=== PATIENT | female | born 1935 | race Caucasian/White ===

== ENCOUNTER 2016-12-03 01:02 | Day surgery (SDC) | payer MEDICARE, MEDICAID ==
[2016-12-03] VITALS (10 sets, daily range): BP systolic 122–172; BP diastolic 47–73; PULSE 56–78; RESP 13–20; O2SAT 98
[~2016-12-03] VITALS: Ht 167.6 cm; Wt 86.4 kg
[~2016-12-03 01:02] MED LIST: CA C1TAB29 PO; FLUN25SP NS; HYDR50TA3 PO; LANS30CA14 PO; LISI-571 PO; MECL-114 PO; METO25TA6 PO; MULT-666 PO; NITR0.4T6 SL; POTA99TA21 PO; PRAV40TA PO; TRAM50TA2 PO; WARF2TAB7 PO
[2016-12-03 11:48] LABS: BASOPHILS % (AUTO) 0.4 % (0-3); EOSINOPHILS % (AUTO) 4.9 % (0-5); MONOCYTES % (AUTO) 7.5 % (4-12); Mean Corpuscular Hemoglobin 28.3 pg (27.0-35.0); NEUTROPHILS % (AUTO) 48.5 % (40-74); Platelet Count 244 bil/L (150-400)
[2016-12-03 12:08] LABS: INR 1.72 ratio
[2016-12-03] MEDS ORDERED: Bupivacaine-MPF 0.5% 30 mL Inj ONE (13:29)
[2016-12-03] MEDS ORDERED: 0.9% Sodium Chloride 250 ML ONE (13:29)
[2016-12-03] MEDS ORDERED: Heparin 5,000 Units/500 mL NS Premix IV ONE (13:29)
[2016-12-03] MEDS ORDERED: Water for Injection 50 ML IV ONE (13:30)
[2016-12-03] MEDS ORDERED: Vancomycin 1,000 mg Inj ONE (13:39)
[2016-12-03] MEDS ORDERED: fentaNYL-PF 50 mCg/mL 2 mL Inj ONE (14:19)
[2016-12-03] MEDS ORDERED: Ondansetron 2 mg/mL 2 mL Inj IVPUSH PRN (15:40)
[2016-12-03] MEDS: 0.9% Sodium Chloride 1,000 ML IV SCH (15:40)
--- NOTE | 2016-12-03 16:44 | DRSVH ---
PROCEDURE: X-RAY CHEST ONE VIEW, PORTABLE ([id number]) INDICATIONS: For new leads placed TECHNIQUE: One view of the chest was acquired. COMPARISON: [facility], CR, XR CHEST 1VW (PORTABLE), 05/21/2016, 11:41. [facility] on, CR, XR CHEST 2VW, 07/29/2016, 9:55. FINDINGS: Surgical changes and devices: Patient is status post dual lead cardiac defibrillator placement. Lungs and pleura: No pleural effusions or pneumothorax. Lungs are clear. Mediastinum: The heart is normal size. There is a questionable hyperdense mass at the right hilum. Bones and chest wall: No suspicious bony lesions. Overlying soft tissues appear unremarkable. IMPRESSION: 1. Status post cardiac pacemaker without pneumothorax. 2. Questionable high density mass at the right hilum. This may represent calcified lymph nodes or art ifact from vascular shadows. If further characterization is warranted, CT of the chest may be helpful . Dictated by: Jael Lara M.D. on 12/03/2016 at 16:41 Approved by: Jael Lara M.D. on 12/03/2016 at 16:43
--- NOTE | 2016-12-03 18:21 | OP ---
[address] [address] OPERATIVE REPORT PATIENT: BLANQUITA BARRON : 1935 MR#: [id number] ADMIT: 12/03/2016 JOB ID: [id number] DATE OF SURGERY: 12/03/2016 PREOPERATIVE DIAGNOSIS(ES): Sick sinus syndrome. POSTOPERATIVE DIAGNOSIS(ES): Sick sinus syndrome. PROCEDURES PERFORMED: 1. Dual-chamber pacemaker implantation. 2. Fluoroscopy. SURGEON: Zak Nunn M.D., electrophysiology attending. [employer] DRIVER: Deandre Perdue/Rhina France. IMPLANTED DEVICE: 1. [employer] pulse generator, model LB4013, serial #[id number]. 2. RA lead, [employer] LB, 1246 cm, serial #[id number]. 3. RV lead [employer], LPA 1200M, 52 cm, serial #[id number]. ANESTHESIA: Bolus dosing of Versed and fentanyl were utilized for appropriate level of sedation. INDICATION: The patient is a pleasant 81-year-old woman with sick sinus syndrome. After discussion of risks and benefits of pacemaker implantation, she opted to proceed. PROCEDURAL DESCRIPTION: Following informed consent, the patient was then taken to the EP laboratory in a fasting nonsedated state where she was prepped and draped in the usual sterile fashion. The left infraclavicular region was infiltrated with 40 cc of a 50/50 mixture of bupivacaine and lidocaine. Once adequate anesthesia had been achieved, a 3 cm transverse incision was performed 2 cm below the left clavicle. Dissection was carried down to the pectoralis fascia and a pocket was then fashioned using a combination of electrocautery and blunt dissection. Once adequate hemostasis had been achieved, access to the left axillary vein was done with a micropuncture needle twice to deploy two 0.035, 3 mm J guidewires. Over the first of these, an 8-Kosovan tear-away sheath was advanced. RV outflow tract and ultimately RV apex. The lead was affixed in position using associated fixation screw. It was connected to the external analyzer and demonstrated appropriately sensed R waves, impedance. Capture threshold was checked to 10 V and there was no diaphragmatic stimulation. Attention was now paid to the right atrial lead. Over the J guidewire, another 8-Kosovan tear-away sheath was advanced. active fixation lead was inserted and was affixed in position using associated active fixation screw. The lead was connected to external analyzer and demonstrated appropriately sensed P waves, impedance, capture threshold. The lead was checked at 10 V and there was no evidence of diaphragmatic stimulation. Once the position and redundancy of both leads were confirmed with multiple views, the leads were anchored to the prepectoralis fascia using associated . The pocket was copiously irrigated with antibiotic solution. The leads were connected to a generator. The generator was placed within the pocket and affixed to the floor of the pocket using 1-0 Ti-Cron suture. The incision was closed with running layers of suture. The wound was dressed with and a small dressing. At the end of the procedure, the sponge, needle and instrument counts were correct. COMPLICATIONS: None. ESTIMATED BLOOD LOSS: Negligible. MEASURED DEVICES: 1. Right atrial lead, 2.3 mV, 540 ohms, 1.25 V at 0.4 msec. 2. RV lead greater than 12 mV, 590 ohms, 0.5 V at 0.4 msec. FINAL PROGRAM PARAMETERS: DDD 60-130 beats per minute. IMPRESSION: Successful dual-chamber pacemaker implantation. PLAN: 1. Stat portable chest x-ray. 2. PA and lateral chest x-ray in the morning. 3. . 4. Vancomycin through tomorrow. 5. Doxycycline x7 days starting this week. 6. Check in one week. ATTENDING STATEMENT: Zak Nunn M.D., electrophysiology attending, was present for and supervised/performed all aspects of this procedure.
--- NOTE | 2016-12-03 18:45 | NUR ---
Arrival to [facility] Rm [id number] from [facility] Pt arrived to [facility] A&OX3, able to SKELTON, RA, SPO2 mid 90's, answers questions approriately; L arm in sling, pacemaker site L chest, dressing CDI, c/o L shoulder pain, states cannot take PO Tylenol but can take PO Tramadol. Next IV Vanco 1Gram dose due at 2am according to ZAMZAM Koehler, will pass onto NOC shift RN. Pt oriented to room by floor aide and tucked into bed. Will continue to monitor with frequent rounds.
--- NOTE | 2016-12-03 19:52 | PCM.CONPHA ---
Subjective Date of Service: December 03, 2016 Requesting Provider: Zak Nunn MD Reason for Pharmacy Consult: Anticoagulation Management Objective Vital Signs Date Time Temp Pulse Resp B/P Pulse Ox O2 Delivery O2 Flow Rate FiO2 12/03/16 18:58 36.5 72 20 161/72 98 Room Air 12/03/16 18:00 78 16 122/73 98 Room Air 12/03/16 17:30 62 16 166/58 98 Room Air 12/03/16 17:00 70 16 160/55 98 Room Air 12/03/16 16:45 64 16 160/52 98 Room Air 12/03/16 16:28 71 16 170/56 98 Room Air 12/03/16 16:15 60 16 172/50 98 Room Air 12/03/16 16:05 60 16 162/72 98 Room Air 12/03/16 12:01 36.7 56 13 145/47 BiPAP Weight (Kilograms): 86.360 Height (Feet): 5 Height (Inches): 6.00 Test 12/03/16 11:45 White Blood Count 7.3th/mm3 (3.8-10.1) Red Blood Count 4.67mil/mm3 (3.90-5.20) Hemoglobin 13.2g/dL (12.0-15.6) Hematocrit 41.1% (35.0-46.0) Mean Corpuscular Volume 88.0fL (81-100) Mean Corpuscular Hemoglobin 28.3pg (27.0-35.0) Mean Corpuscular Hemoglobin Concent 32.1% (32.0-37.0) Red Cell Distribution Width 15.0% (12.3-15.4) Platelet Count 244bil/L (150-400) Neutrophils (%) (Auto) 48.5% (40-74) Lymphocytes (%) (Auto) 38.7% (14-46) Monocytes (%) (Auto) 7.5% (4-12) Eosinophils (%) (Auto) 4.9% (0-5) Basophils (%) (Auto) 0.4% (0-3) Prothrombin Time 18.6sec (8.1-12.5) Prothromb Time International Ratio 1.72ratio Sodium Level 140mEq/L (134-144) Potassium Level 4.7mEq/L (3.5-5.2) Chloride Level 104mEq/L (97-108) Carbon Dioxide Level 23mmol/L (18-29) Blood Urea Nitrogen 21mg/dL (8-27) Creatinine 1.28mg/dL (0.57-1.00) Estimat Glomerular Filtration Rate 57mL/min (>59) Glucose Level 102mg/dL (60-99) Calcium Level 9.1mg/dL (8.5-10.1) Assessment/Plan Assessment/Plan Warfarin per Rx Home Dose: 2mg; no notes regarding indications; assuming A-Fib w/o valve INR today is 1.72; Goal is 2-3; approaching therapeutic, will keep usual home dose of 2mg Daily INR Christian Montiel PharmD December 03, 2016 19:52
--- NOTE | 2016-12-03 20:28 | NUR ---
pain complains of left upper chest incisional discomfort. rates 4 per numeric scale. dressing c/d/i. no hematoma arm in sling. adjusted for comfort given ice bag for comfort to incision medicated with scheduled tramadol will re evaluate. resting comfortably at this time. Addendum: 12/03/16 at 2247 by MITCH FERRO RN medicated with hydrocodone. effective. resting with eyes closed.
[2016-12-03] MEDS: HYDROcodone-APAP 5-325 mg Tablet PO PRN (21:00)
[2016-12-04 00:45] VITALS: BP 159/75; PULSE 60; RESP 18; O2SAT 95
[2016-12-04] MEDS ORDERED: 0.9% Sodium Chloride 250 ML ONE (01:35)
[2016-12-04] MEDS: 0.9% Sodium Chloride 1,000 ML IV SCH ×2 (01:40→11:40)
[2016-12-04] MEDS: HYDROcodone-APAP 5-325 mg Tablet PO PRN ×2 (01:41→06:17)
[2016-12-04] MEDS ORDERED: Vancomycin Inj 1,000 MG in IV Premix 1 EACH IV ONE (03:40)
[2016-12-04 04:32] VITALS: BP 148/69; PULSE 63; RESP 18; O2SAT 94
[2016-12-04] MEDS ORDERED: Pantoprazole 40 mg ER24 Tablet PO SCH (06:30)
[2016-12-04 06:43] LABS: INR 1.89 ratio
[2016-12-04] MEDS ORDERED: Fluticasone 0.05% 15 Spray/2 Gm 16 Gm Nasal Spray NASAL SCH (08:30)
[2016-12-04 08:46] VITALS: BP 146/73; PULSE 73; RESP 20; O2SAT 92
--- NOTE | 2016-12-04 10:29 | PCM.DIMED ---
Discharge Instructions Date of Service December 04, 2016 Dates of Hospitalization Discharge Diagnosis Discharge Diagnosis Sick Sinus Syndrome Sinus Bradycardia Paroxysmal Atrial Fibrillation with rapid rates CAD Hypertension Diet Low fat, Low Sodium, Heart Healthy Activity Other (Keep incision dry one day. Do not extend left elbow high above shoulder for one month. Do not lift, push or pull more than 10 lbs with the left arm for one month.) Call your provider Fever or Chills, Bleeding, Excessive diarrhea Patient Instructions Follow-up in: 1 week Mid-level Provider (F9): Mj Miller PA-C Follow-up with Mid-level in: 6 weeks Mj Miller PA-C December 04, 2016 10:29
[2016-12-04] MEDS ORDERED: DOXY100C2 PO (10:45)
[2016-12-04 10:57] VITALS: PULSE 60
--- NOTE | 2016-12-04 11:23 | DIS ---
[address] [address] DISCHARGE SUMMARY PATIENT: BLANQUITA BARRON : 1935 MR#: [id number] ADMIT: 12/03/2016 JOB ID: [id number] DIS: REASON FOR ADMISSION: Pacemaker implant. CHIEF COMPLAINT: Slow heart rate, lightheadedness and falls. BRIEF HISTORY: The patient is a pleasant 81-year-old woman known to have coronary artery disease and prior PCI who has preserved LV function and paroxysmal atrial fibrillation. She has had episodes of falls and presyncope, which led to a hospitalization in [place] in August this year. There, she was found to have rapid atrial fibrillation and required at least low-dose beta-denis for rate control but this led to exacerbation of symptomatic bradycardia. She was advised to seek pacemaker implant. COURSE IN THE HOSPITAL: The patient was admitted through the [facility] and taken to the catheterization laboratory, where she received a dual-chamber cardiac pacemaker without incident. She was taken back to the [facility] for recovery from sedation and then transferred up to the [facility] for overnight telemetry monitoring and observation. She did well overnight and in the morning was ambulatory without difficulty. The pacemaker site was closed and dry. There was no hematoma. Chest x-ray showed good lead positions and no pneumothorax. Device evaluation showed excellent capture and sensing thresholds. She felt well for discharge home and had no complaints of nausea, shortness of breath, chest pain, or lightheadedness. DISPOSITION: The patient was discharged home in good condition with a followup appointment at the [facility] Cardiology office in one week. She was asked not to extend her left elbow above her shoulder for one month and not to lift, push, or pull more than 10 pounds with the left arm for one month. She will follow her usual heart healthy diet and take medications as prescribed. DISCHARGE MEDICATIONS: 1. Doxycycline 100 mg daily for 1 week. 2. Calcium with vitamin D3 tablet 1 daily. 3. Flunisolide 25 mL nasal spray. 4. Hydrochlorothiazide 50 mg daily. 5. Lansoprazole 30 mg daily. 6. Lisinopril 5 mg daily. 7. Meclizine 25 mg t.i.d. p.r.n. dizziness. 8. Metoprolol succinate 12.5 mg b.i.d. 9. Multivitamin 1 daily. 10. Nitroglycerin sublingual 0.4 mg sublingual q.5 minutes p.r.n. chest pain. 11. Potassium gluconate 99 mg daily. 12. Pravastatin 40 mg daily. 13. Tramadol 50 mg t.i.d. p.r.n. pain. 14. Warfarin 2 mg daily. FINAL DIAGNOSES: 1. Sick sinus syndrome. 2. Paroxysmal atrial fibrillation. 3. Sinus bradycardia. 4. Coronary artery disease. 5. Hypertension.
--- NOTE | 2016-12-04 12:12 | DRSVH ---
PROCEDURE: X-RAY CHEST, TWO VIEWS ([id number]) INDICATIONS: FOR NEW LEAD PLACEMENT TECHNIQUE: Two views of the chest were acquired. COMPARISON: [facility], CR, XR CHEST 1VW (PORTABLE), 05/21/2016, 11:41. [facility], CR, XR CHEST 1VW (PORTABLE), 12/03/2016, 15:56. [facility], CR, XR CHEST 2VW, 07/29/19 17, 9:55. FINDINGS: Surgical changes and devices: Stable positioning of left cardiac pacer. Lungs and pleura: No pleural effusions or pneumothorax. Lungs are clear. Mediastinum: Mediastinal contours are normal. Heart size is normal. Right hilar calcification rede monstrated. Bones and chest wall: No suspicious bony abnormalities. Soft tissues appear unremarkable. IMPRESSION: 1. Stable chest post pacer placement. 2. Presumed right hilar calcification redemonstrated. Dictated by: Juan MIRELES Interpreted: Leonora Carcamo MD on 12/04/2016 at 9:14 Transcribed by: OMAYRA on 12/04/2016 at 15:11 Approved by: Leonora Carcamo M.D. on 12/04/2016 at 17:42
[2016-12-04 13:06] VITALS: BP 136/72; PULSE 67; RESP 18; O2SAT 94
--- NOTE | 2016-12-04 14:15 | NUR ---
Discharge Patient departed unit via wheelchair, accompanied by staff. Patient alert and oriented following a pacemaker placement yesterday. Patient having mild to moderate pain at incision site. Patient on room air, ambulating independently in room and hallway with personal cane. Patient denies chest discomfort, nausea, shortness of breath, diarrhea. Discharge instructions/medications reviewed with patient prior to discharge. All questions addressed. Patient belongings, and discharge instructions in hand. Prescription electronically sent to [facility] pharmacy.
== END 2016-12-04 13:40 | disposition home or self-care (01) ==
LOC: SOUO 01:02 → MPC 19:15 → SOUO 12-04 13:40
PROVIDERS: ATTEND Internal Medicine Cardiovascular Disease
DX: I49.5 Sick sinus syndrome (principal); I48.0 Paroxysmal atrial fibrillation; R55 Syncope and collapse; I25.10 Atherosclerotic heart disease of native coronary artery without angina pectoris; I10 Essential (primary) hypertension; E78.5 Hyperlipidemia, unspecified; Z98.61 Coronary angioplasty status; K21.9 Gastro-esophageal reflux disease without esophagitis; Z79.01 Long term (current) use of anticoagulants
CPT/HCPCS: 33208; 36415; 71010; 71020; 80048; 85025; 85610; 93005; 99152; 99153; C1769; C1785; C1892; C1898; J2250; J3010; J3370; J7050